=== PATIENT | male | born 1985 | race Caucasian/White ===

== ENCOUNTER 2017-11-30 20:11 | Emergency (ER) | payer OTHER, MEDICAID ==
[2017-11-30] MEDS: METHOCARBAMOL 750 MG TAB PO (22:09)
== END 2017-11-30 22:14 | disposition home or self-care (01) ==
LOC: M ED 20:11
DX: M54.42 Lumbago with sciatica, left side (principal); K21.9 Gastro-esophageal reflux disease without esophagitis; Z72.0 Tobacco use; Z88.0 Allergy status to penicillin; Z91.030 Bee allergy status
CPT/HCPCS: 99282

== ENCOUNTER 2020-01-15 16:04 | Emergency (ER) | payer OTHER ==
[~2020-01-15] VITALS: Ht 185.4 cm; Wt 74.1 kg
[2020-01-15 16:04] VITALS: BP 140/87
[~2020-01-15 16:04] MED LIST: FLEXERIL OR; NAPR-837 PO; ROBA750T4 PO; TRAM50TA2 OR
--- NOTE | 2020-01-15 17:49 | REPVR ---
PROCEDURE INFORMATION: Exam: US Scrotum Exam date and time: 01/15/2020 5:35 PM Age: 34 years old Clinical indication: Other: Left testicular mass TECHNIQUE: Imaging protocol: Real-time ultrasound of the scrotum and contents with color Doppler and image documentation. COMPARISON: No relevant prior studies available. FINDINGS: Right testicle: Right testis measures 5.5 x 2.8 x 2.9 cm. Normal echogenicity and flow. Left testicle: Left testis measures 4.7 x 2.8 x 3.2 cm. Normal echogenicity and flow. Epididymides: Cyst in the right epididymal head measures 8.5 x 6.7 x 11 mm. Left epididymal tail measures 9 mm demonstrating hyperemic flow on color flow Doppler consistent with epididymitis. Scrotum: Normal. IMPRESSION: 1. Cyst in the right epididymal head as described above. 2. Left epididymal tail measures 9 mm demonstrating hyperemic flow on color flow Doppler consistent with epididymitis. Electronically signed by: Vernon Donovan On 01/15/2020 17:49:25 PM
[2020-01-15] MEDS ORDERED: DOXY100C37 PO (18:10)
[2020-01-15] MEDS ORDERED: AZITHROMYCIN 250MG TABLET PO ONE (18:15)
== END 2020-01-15 18:37 | disposition home or self-care (01) ==
LOC: M ED 16:04
DX: N45.1 Epididymitis (principal); F17.200 Nicotine dependence, unspecified, uncomplicated; Z88.0 Allergy status to penicillin; Z91.030 Bee allergy status

== ENCOUNTER 2020-01-16 16:58 | Emergency (ER) | payer OTHER ==
[~2020-01-16] VITALS: Ht 185.4 cm; Wt 74.5 kg
[~2020-01-16 16:58] MED LIST changes: +DOXY100C37 PO
[2020-01-16 18:07] VITALS: BP 173/86
== END 2020-01-16 18:13 | disposition home or self-care (01) ==
LOC: M ED 16:58
DX: S01.01XA Laceration without foreign body of scalp, initial encounter (principal); W01.198A Fall on same level from slipping, tripping and stumbling with subsequent striking against other object, initial encounter; Y92.019 Unspecified place in single-family (private) house as the place of occurrence of the external cause; K21.9 Gastro-esophageal reflux disease without esophagitis; Z88.0 Allergy status to penicillin; Z91.030 Bee allergy status

== ENCOUNTER 2020-06-22 14:22 | Emergency (ER) | payer OTHER ==
[~2020-06-22] VITALS: Ht 185.4 cm; Wt 75.0 kg
--- OUTSIDE RECORDS SUMMARY | 2020-06-22 14:44 | CCD ---
Author Author [facility] Organization [facility] Address Unknown Phone Unavailable Care Team Providers Care Evaporator Name Role Phone Restrepo, Agustina Orlin PA Unavailable Unavailable Restrepo, R Orlin PA Unavailable Restrepo, R Orlin PA Unavailable Restrepo, R Orlin PA Unavailable Restrepo, R Orlin PA Unavailable Restrepo, R Orlin PA Unavailable Restrepo, R Orlin PA Unavailable Restrepo, R Orlin PA Unavailable Restrepo, R Orlin PA Unavailable TESS, Cristhian SEAMAN PA Unavailable Unavailable TESS, A JURGEN PA Unavailable Unavailable TESS, A JURGEN PA Unavailable Unavailable TESS, A JURGEN PA Unavailable Unavailable TESS, A JURGEN PA Unavailable Unavailable TESS, A JURGEN PA Unavailable Unavailable TESS, A JURGEN PA Unavailable Unavailable TESS, A JURGEN PA Unavailable Unavailable TESS, A JURGEN PA Unavailable Unavailable TESS, A JURGEN PA Unavailable Unavailable TESS, A JURGEN PA Unavailable Unavailable TESS, A JURGEN PA Unavailable Unavailable TESS, Cristhian MONAHAN Unavailable Unavailable Re-disclosure Warning The records that you are about to access may contain information from federally-assisted alcohol or drug abuse programs. If such information is present, then the following federally mandated warning applies: This information has been disclosed to you from records protected by federal confidentiality rules (42 CFR part 2). The federal rules prohibit you from making any further disclosure of this information unless further disclosure is expressly permitted by the written consent of the person to whom it pertains or as otherwise permitted by 42 CFR part 2. A general authorization for the release of medical or other information is NOT sufficient for this purpose. The Federal rules restrict any use of the information to criminally investigate or prosecute any alcohol or drug abuse patient.The records that you are about to access may contain highly sensitive health information, the redisclosure of which is protected by Article 27-F of the [facility] Public Health law. If you continue you may have access to information: Regarding HIV / AIDS; Provided by facilities licensed or operated by the [facility] Office of Mental Health; or Provided by the [facility] Office for People With Developmental Disabilities. If such information is present, then the following [facility] mandated warning applies: This information has been disclosed to you from confidential records which are protected by state law. State law prohibits you from making any further disclosure of this information without the specific written consent of the person to whom it pertains, or as otherwise permitted by law. Any unauthorized further disclosure in violation of state law may result in a fine or mcfp sentence or both. A general authorization for the release of medical or other information is NOT sufficient authorization for further disc losure. Allergies and Adverse Reactions Type Description Substance Reaction Status Data Source(s ) Drug allergy Drug allergy bee venom protein (honey bee) [facility] Drug allergy Drug allergy bee pollen [facility] Drug allergy Drug allergy Penicillins [facility] Drug allergy Drug allergy Environmental [facility] Family History Family Member Name Family Member Gender Family Member Status Date o f Status Description Data Source(s) Unknown Male Problem MEDENT ([facility]) Encounters Encounter Providers Location Date Indications Data Source(s ) Outpatient [facility]PS[facility]EJN 01/14/2020 08:08:00 PM EDT [facility] Emergency Attender: Orlin SAMUELSttender: Orlin MONAHAN ED-ED 01/14/2020 02:33:00 PM EDT - 01/14/2020 05:08:00 PM EDT ENLARGED MASS [facility] ENLARGED MASS Patient discharged. Emergency Attender: JURGEN MONAHAN ED-ED 09/19 06:56:00 PM EDT - 09/20/2019 07:27:00 PM EDT LACERATION R PINKY FINGER [facility] LACERATION R PINKY FINGER Patient discharged. Insurance Providers Payer name Policy type / Coverage type Policy ID Covered republican ID Covered republican's relationship to sánchez Policy Sánchez Plan Information [facility] O [id number] S [id number] O UNAVAILABLE UNAVAILA BLE [facility] [id number] SP [id number] [facility] COMM[facility] [id number] SP [id number] [facility] [id number] S [id number] [facility] Community Plan Commercial [id number] Self [id number] MEDICAID [id number] SP [id number] Results ID Date Data Source [id number] 05/03/2020 12:00:00 AM EST [facility] Aman Rodriguez MD Patient Name: NIA,SHARMILA [address] [facility] Date of : 1985[place] [address] Date of Exam: 05/03/2020#: Fax: [phone] EXAM: LUMBSACRAL SPINE (2 OR 3 VIEWS) XRAYCLINICAL INFORMATION: Disability determination.PRIORS: None.There is mild universal L5-1 disc space narrowing and mild posterior discspace narrowing at other levels. There is anterior lipping seen at everylevel. The pedicles are intact bilaterally.IMPRESSION:Chronic changes as described above.JOHN Rankin/Divine paredes for referring SHARMILA KRAMER to our office. Electronically Signed - ISABELA MCGINNIS DO 05/04/20 15:12 Name Value Range Interpretation Code Description Data Cece rce(s) Supporting Document(s) ID Date Data Source [id number] 01/15/2020 05:31:00 PM EDT [facility] Name Value Range Interpretation Code Description Data Cece rce(s) Supporting Document(s) Chlamydia,Urine result Negative Very abnormal (applies t o non-numeric units [facility] Tosha Gregory RN read back information 1457 LAB.JORASHAWN Test Performed By: [facility] [address] [place] [address] Director: Lisa Valdes MD . THIS IS A STATE REPORTABLE COMMUNICABLE DISEASE. Results called 01/15/201457, Radha Adair MT @ lab read back information to LAB.JANMI GC Urine result Negative Normal (applies to non-numeric results) [facility] Test Performed By: [facility] [address] [place] [address] Director: Lisa Valdes MD . Methodology: Second generation nucleic acid amplification. ID Date Data Source [id number] 01/15/2020 02:59:00 PM EDT [facility] Name Value Range Interpretation Code Description Data Cece rce(s) Supporting Document(s) Chlamydia,Urine Negative [facility] Test Performed By: [facility] [address] [place] [address] Director: Lisa Valdes MD . THIS IS A STATE REPORTABLE COMMUNICABLE DISEASE. Results called 01/15/201457, Radha Adair MT @ lab read back information to LAB.JANMI Test Performed By: [facility] [address] [place] [address] Director: Lisa Valdes MD . Methodology: Second generation nucleic acid amplification. ID Date Data Source [id number] 01/14/2020 04:11:00 PM [facility] Collected By: Nurse Initials: as Time Collected: 1541 Collected By: Nurse Initials: as Time Collected: 1541 Name Value Range Interpretation Code Description Data Cece rce(s) Supporting Document(s) Color,Urine Colorl-Dk Y Normal (applies to non-numeric res ults) [facility] Clarity,Urine Clear Normal (applies to non-numeric re sults) [facility] Specific [place],Urine 1.005-1.030 Normal (applies to non- numeric results) [facility] pH,Urine 5.0-8.0 Normal (applies to non-numeric resul ts) [facility] Protein,Urine Negative Normal (applies to non-numeric re sults) [facility] Glucose,Urine Negative Normal (applies to non-numeric re sults) [facility] Ketones,Urine Negative Normal (applies to non-numeric re sults) [facility] Blood,Urine Negative Normal (applies to non-numeric resu lts) [facility] Bilirubin,Urine Negative Normal (applies to non-numeric results) [facility] Urobilinogen,Urine 0.2-1.0 Normal (applies to non-numer ic results) [facility] Leukocyte Esterase,Urine Negative [facility] Nitrite,Urine Negative Normal (applies to non-numeric re sults) [facility] ID Date Data Source [id number] 01/14/2020 04:11:00 PM [facility] Collected By: Nurse Initials: as Time Collected: 1541 Collected By: Nurse Initials: as Time Collected: 1541 Name Value Range Interpretation Code Description Data Cece rce(s) Supporting Document(s) RBC,Urine None Seen Normal (applies to non-numeric resul ts) [facility] WBC,Urine None Seen [facility] Casts,Urine None Seen Normal (applies to non-numeric resu lts) [facility] Epithelial Cells,Urine None - Few Normal (applies to non-n umeric results) [facility] Bacteria,Urine None Seen Normal (applies to non-numeric r esults) [facility] Procedure Vital Signs ID Date Data Source [id number] 01/15/2020 05:31:[address] [facility] Name Value Range Interpretation Code Description Data Source(s) Weight Measurement Method 8 8 [facility] Weight [address] [facility] pital Temperature Source 1 1 [facility] Temperature 98.[address] [facility] Respiratory Effort 1 1 [facility] Respiratory Rate [address] [facility] Pulse Assessment Method 4 4 G [facility] Pulse Rate [address] [facility] pital Height [address] [facility] pital Blood Pressure 150/92 150/92 [facility] Weight Measurement Method 8 8 [facility] Weight [address] [facility] pital Temperature Source 1 1 [facility] Temperature [address] [facility] Respiratory Effort 1 1 [facility] Respiratory Rate [address] [facility] Pulse Assessment Method 4 4 G [facility] Pulse Rate [address] [facility] pital Height [address] [facility] pital Blood Pressure 150/92 150/92 [facility] ID Date Data Source [id number] 09/20/2019 07:27:[address] [facility] Name Value Range Interpretation Code Description Data Source(s) Weight Measurement Method 8 8 [facility] Weight [address] [facility] pital Temperature Source 7 7 [facility] Temperature 98.[address] [facility] Respiratory Rate [address] [facility] 91 [facility] 136/94 136/94 [facility] Weight Measurement Method 8 8 [facility] Weight [address] [facility] pital Temperature Source 7 7 [facility] Temperature [address] [facility] Respiratory Rate [address] [facility] Pulse Rate [address] [facility] pital Blood Pressure 136/94 136/94 [facility]
--- OUTSIDE RECORDS SUMMARY | 2020-06-22 17:04 | CCD ---
Author Author [facility] Organization [facility] Address Unknown Phone Unavailable Care Team Providers Care Pick Up Worker Name Role Phone Restrepo, R Orlin PA Unavailable Unavailable Restrepo, R Orlin PA Unavailable Restrepo, R Orlin PA Unavailable Restrepo, R Orlin PA Unavailable Restrepo, R Orlin PA Unavailable Restrepo, R Orlin PA Unavailable Restrepo, R Orlin PA Unavailable Restrepo, R Orlin PA Unavailable Restrepo, R Orlin PA Unavailable Restrepo, R Orlin PA Unavailable TESS, Cristhian MONAHAN Unavailable Unavailable TESS, Cristhian SEAMAN PA Unavailable Unavailable TESS, Cristhian SEAMAN PA Unavailable Unavailable TESS, Cristhian SEAMAN PA Unavailable Unavailable TESS, Cristhian SEAMAN PA Unavailable Unavailable TESS, Cristhian SEAMAN PA Unavailable Unavailable TESS, Cristhian SEAMAN PA Unavailable Unavailable TESS, Cristhian SEAMAN PA Unavailable Unavailable TESS, Cristhian SEAMAN PA Unavailable Unavailable TESS, A JURGEN PA Unavailable Unavailable TESS, A JURGEN PA Unavailable Unavailable TESS, A JURGEN PA Unavailable Unavailable TESS, A JURGEN PA Unavailable Unavailable Re-disclosure Warning The records that [...] is protected by Article 27-F of the [facility] Public Health law. If you continue you may have access to information: Regarding HIV / AIDS; Provided by facilities licensed or operated by the [facility] Office of Mental Health; or Provided by the [facility] Office for People With Developmental Disabilities. If such information is present, then the following [facility] mandated warning applies: This information has been [...] law may result in a fine or longterm sentence or both. A general authorization for the release of medical or other information is NOT sufficient authorization for further disc losure. Allergies and Adverse Reactions Type Description Substance Reaction Status Data Source(s ) Drug allergy Drug allergy bee venom protein (honey bee) [facility] Drug allergy Drug allergy bee pollen [facility] Drug allergy Drug allergy Penicillins [facility] Drug allergy Drug allergy Environmental [facility] Family History Family Member Name Family Member Gender Family Member Status Date o f Status Description Data Source(s) Unknown Male Problem [facility] ([facility]) Encounters Encounter Providers Location Date Indications Data Source(s ) Outpatient [facility]PS[facility]ORT-LABEJN 01/14/2020 08:08:[address] [facility] Emergency Attender: Orlin Restrepo PAAttender: Orlin MONAHAN ED-ED 01/14/2020 02:33:00 PM EDT - 01/14/2020 05:08:00 PM EDT ENLARGED MASS [facility] ENLARGED MASS Patient discharged. Emergency Attender: JURGEN MONAHAN ED-ED 09/19 06:56:00 PM EDT - 09/20/2019 07:27:00 PM EDT LACERATION R PINKY FINGER [facility] LACERATION R PINKY FINGER Patient discharged. Insurance Providers Payer name Policy type / Coverage type Policy ID Covered republican ID Covered republican's relationship to sánchez Policy Sánchez Plan Information [facility] COMMUNITY PLAN [facility] [id number] [facility] O [id number] S [id number] O UNAVAILABLE UNAVAILA BLE [facility] COMMUNITY PLAN [facility] [id number] [facility] [id number] S [id number] [facility] Community Plan Commercial [id number] Self [id number] MEDICAID [id number] SP [id number] Results ID Date Data Source [id number] 05/03/2020 12:00:00 AM EST [facility] Aman Rodriguez MD Patient Name: SHARMILA KRAMER [address] [facility] Date of : 1985[place] [id number] Date of Exam: [facility]#: Fax: [phone] EXAM: LUMBSACRAL SPINE (2 OR 3 VIEWS) XRAYCLINICAL INFORMATION: Disability determination.PRIORS: None.There is mild universal L5-1 disc space narrowing and mild posterior discspace narrowing at other levels. There is anterior lipping seen at everylevel. The pedicles are intact bilaterally.IMPRESSION:Chronic changes as described above.Isabela Mcginnis, JOHN/Divine you for referring SHARMILA KRAMER to our office. Electronically Signed - ISABELA MCGINNIS DO 05/04/20 15:12 Name Value Range Interpretation Code Description Data Cece rce(s) Supporting Document(s) ID Date Data Source [id number] 01/15/2020 05:31:00 PM EDT [facility] Name Value Range Interpretation Code Description Data Cece rce(s) Supporting Document(s) Chlamydia,Urine result Negative Very abnormal (applies t o non-numeric units [facility] Tosha Gregory RN read back information 1457 LAB.JAMES Test Performed By: [facility] [address] [place] [address] Director: Lisa Valdes MD . THIS IS A STATE REPORTABLE COMMUNICABLE DISEASE. Results called 01/15/201457, Radha Adair MT @ lab read back information to LAB.KANDIS GC Urine result Negative Normal (applies to non-numeric results) [facility] Test Performed By: [facility] [address] [place] [address] Director: Lisa Valdes MD . Methodology: Second generation nucleic acid amplification. ID Date Data Source [id number] 01/15/2020 02:59:00 PM EDT [facility] Name Value Range Interpretation Code Description Data Cece rce(s) Supporting Document(s) Chlamydia,Urine Negative [facility] Test Performed By: [facility] [address] [place] [address] Director: Lisa Valdes MD . THIS IS A STATE REPORTABLE COMMUNICABLE DISEASE. Results called 01/15/20 Nanette, Radha Adair MT @ lab read back information to LAB.JANMI Test Performed By: [facility] [address] [place] [address] Director: Lisa Valdes MD . Methodology: Second generation nucleic acid amplification. ID Date Data Source [id number] [facility]: Nurse Initials: as Time Collected: 1541 Collected By: Nurse Initials: as Time Collected: 1541 Name Value Range Interpretation Code Description Data Cece rce(s) Supporting Document(s) Color,Urine Colorl-Dk Y Normal (applies to non-numeric res ults) [facility] Clarity,Urine Clear Normal (applies to non-numeric re sults) [facility] Specific [place],Urine 1.005-1.030 Normal (applies to non- numeric results) [facility] pH,Urine 5.0-8.0 Normal (applies to non-numeric resul ts) [facility] Protein,Urine Negative Normal (applies to non-numeric re sults) [facility] Glucose,Urine Negative Normal (applies to non-numeric re sults) [facility] Ketones,Urine Negative Normal (applies to non-numeric re sults) [facility] Blood,Urine Negative Normal (applies to non-numeric resu lts) [facility] Bilirubin,Urine Negative Normal (applies to non-numeric results) [facility] Urobilinogen,Urine 0.2-1.0 Normal (applies to non-numer ic results) [facility] Leukocyte Esterase,Urine Negative [facility] Nitrite,Urine Negative Normal (applies to non-numeric re sults) [facility] ID Date Data Source [id number] [facility]/14[facility] By: Nurse Initials: as Time Collected: 1541 Collected By: Nurse Initials: as Time Collected: 1541 Name Value Range Interpretation Code Description Data Cece rce(s) Supporting Document(s) RBC,Urine None Seen Normal (applies to non-numeric resul ts) [facility] WBC,Urine None Seen [facility] Casts,Urine None Seen Normal (applies to non-numeric resu lts) [facility] Epithelial Cells,Urine None - Few Normal (applies to non-n umeric results) [facility] Bacteria,Urine None Seen Normal (applies to non-numeric r esults) [facility] Procedure Vital Signs ID Date Data Source [id number] 01/15/2020 05:31:00 PM EDT [facility] Name Value Range Interpretation Code Description Data Source(s) Weight Measurement Method 8 8 [facility] Weight 2400 2400 [facility] pital Temperature Source 1 1 [facility] Temperature 98.2 98.2 [facility] spital Respiratory Effort 1 1 [facility] Respiratory Rate 16 16 [facility] Pulse Assessment Method 4 4 G [facility] Pulse Rate 96 96 [facility] pital Height 73 73 [facility] pital Blood Pressure 150/92 150/92 [facility] Weight Measurement Method 8 8 [facility] Weight 2400 2400 [facility] pital Temperature Source 1 1 [facility] Temperature 98.2 98.2 [facility] spital Respiratory Effort 1 1 [facility] Respiratory Rate 16 16 [facility] Pulse Assessment Method 4 4 G [facility] Pulse Rate 96 96 [facility] pital Height 73 73 [facility] pital Blood Pressure 150/92 150/92 [facility] ID Date Data Source [id number] 09/20/2019 07:27:00 PM EDT [facility] Name Value Range Interpretation Code Description Data Source(s) Weight Measurement Method 8 8 [facility] Weight 2560 2560 [facility] pital Temperature Source 7 7 [facility] Temperature 98.6 98.6 [facility] spital Respiratory Rate 18 18 [facility] 91 91 [facility] Pressure 136/94 136/94 [facility] Weight Measurement Method 8 8 [facility] Weight 2560 2560 [facility] pital Temperature Source 7 7 [facility] Temperature 98.6 98.6 [facility] spital Respiratory Rate 18 18 [facility] Pulse Rate 91 91 [facility] Blood Pressure 136/94 136/94 [facility]
--- NOTE | 2020-06-22 17:23 | REP ---
INDICATION: left sided rib pain following shoveling near 9-11th rib. COMPARISON: None. TECHNIQUE: A PA chest with 4 dedicated left rib images. FINDINGS: PA chest: Of the lung claudio are well inflated there is no effusion, infiltrate, pleural thickening, apical scarring or pneumothorax the heart, mediastinal hilar contours are normal. Some calcified right paratracheal nodes are noted from the T3-4 through upper aspect of T5 vertebral bodies. There is no infiltrate or other parenchymal lung findings. The aorta is intact in the airway normal. The bony thorax and PA chest shows no visible or acute finding. Left ribs: Four view show posterior rib articulations grossly intact visualized thoracic vertebral bodies are grossly unremarkable. Paraspinal nodes with calcification in the right upper chest as on chest x-ray no effusion pleural thickening or pneumothorax on the left side no visible displaced rib fracture or focal lesion IMPRESSION: 1. Negative PA chest for acute finding. There are some calcified right paratracheal lymph nodes evident from the mid aspect the T3 through upper T5 is evidence for old granulomatous disease. 2. No left-sided rib fracture, focal rib lesion, pleural effusion or other acute finding. <Electronically signed by Ehsan Archibald > 06/22/20 [id number]
--- NOTE | 2020-06-22 18:39 | REPVR ---
PROCEDURE INFORMATION: Exam: CT Chest Without Contrast; Diagnostic Exam date and time: 06/22/2020 6:00 PM Age: 34 years old Clinical indication: Chest pain; Additional info: Left chest pain after shoveling TECHNIQUE: Imaging protocol: Diagnostic computed tomography of the chest without contrast. 3D rendering (Not supervised by radiologist): MIP and/or 3D reconstructed images were created by the technologist. Radiation optimization: All CT scans at this facility use at least one of these dose optimization techniques: automated exposure control; mA and/or kV adjustment per patient size (includes targeted exams where dose is matched to clinical indication); or iterative reconstruction. COMPARISON: CR Ribs uni W-PA CHEST ONLY 06/22/2020 5:06 PM FINDINGS: Lungs: Paraseptal emphysematous change is seen in the upper lobes of both lungs. Both lungs are well-aerated. Pleural spaces: Unremarkable. No pneumothorax. No pleural effusion. Heart: The heart size is normal. Normal pulmonary vasculature. No coronary artery calcification is present. Aorta: No CT evidence of thoracic aortic aneurysm or acute intramural thoracic aortic hematoma. Lymph nodes: Multiple calcified lymph nodes are seen in the right paratracheal mediastinum and infracarinal mediastinum. Bones/joints: No CT evidence of acute vascular, visceral or bony injury evident in the chest or upper abdomen. No obvious soft tissue muscular tears or high-grade strains identified within the chest or in the chest wall. The bony structures of the chest are normal. Soft tissues: Unremarkable. IMPRESSION: 1. No CT evidence of acute vascular, visceral or bony injury evident in the chest or upper abdomen. No obvious soft tissue muscular tears or high-grade strains identified within the chest or in the chest wall. 2. Multiple calcified lymph nodes are seen in the right paratracheal mediastinum and infracarinal mediastinum. 3. Paraseptal emphysematous change is seen in the upper lobes of both lungs. Both lungs are well-aerated. 4. No CT evidence of thoracic aortic aneurysm or acute intramural thoracic aortic hematoma. 5. The heart size is normal. Normal pulmonary vasculature. No coronary artery calcification is present. 6. The bony structures of the chest are normal. Electronically signed by: Luis Ramos On 06/22/2020 18:39:43 PM
[2020-06-22 19:09] VITALS: BP 148/80
--- NOTE | 2020-06-23 09:35 | ECGEPIP ---
[facility] [place] - ED Test Date: 2020-06-22 Pat Name: SHARMILA KRAMER Department: Room: - Gender: Male Surgical Services Asst: MALIK : 1985 Requested By: ALEKSANDAR VALLE PA-C Order Number: [id number] Reading MD: Gwendolyn Berg Measurements Intervals [place] Rate: 90 P: 74 MD: 140 QRS: 56 QRSD: 88 T: 37 QT: 340 QTc: 415 Interpretive Statements Normal sinus rhythm Minimal voltage criteria for LVH, may be normal variant ( Sokolow-Ivy ) NSTTW abnormalities No prior Electronically Signed on 06-23-2020 9:35:12 EST by Gwendolyn Berg
== END 2020-06-22 19:19 | disposition home or self-care (01) ==
LOC: M ED 14:22
DX: S23.41XA Sprain of ribs, initial encounter (principal); X50.0XXA Overexertion from strenuous movement or load, initial encounter; Y92.9 Unspecified place or not applicable; Y93.H1 Activity, digging, shoveling and raking; Y99.9 Unspecified external cause status; M54.9 Dorsalgia, unspecified; K21.9 Gastro-esophageal reflux disease without esophagitis; F17.200 Nicotine dependence, unspecified, uncomplicated; Z88.0 Allergy status to penicillin; Z91.030 Bee allergy status

== ENCOUNTER 2021-12-02 02:34 | Emergency (ER) | payer OTHER ==
[~2021-12-02] VITALS: Ht 188 cm; Wt 76.6 kg
[~2021-12-02 02:34] MED LIST changes: +DOXY-443 PO; -DOXY100C37 PO
[2021-12-02] MEDS ORDERED: BOOSTRIX/ADACEL VACCINE (DIPHTH/PERTUSS/ACELL/TETANUS) 0.5ML SYR IM.IMMUN ONE (03:10)
[2021-12-02] MEDS ORDERED: ISOVUE-370 76% 100ML VIAL As Ordered ONE (04:33)
[2021-12-02] MEDS ORDERED: VANCOMYCIN HCL 1,000 MG, VIAL MATE ADAPTER 1 EACH in NS 250 ML IV ONE (04:40)
[2021-12-02 05:01] LABS: BASO % 0.3 % (0.0-1.0); EOS % 0.1 % (0.0-3.0); HEMATOCRIT 41.5 % (42.0-52.0); HEMOGLOBIN 14.4 g/dl (13.5-17.5); LYMPH # 2.2 10^3/uL (1.5-5.0); LYMPH % 14.8 % (24.0-44.0); MEAN CORPUSCULAR HEMOGLOBIN 32.7 pg (27.0-33.0); MEAN CORPUSCULAR HGB CONC 34.7 g/dl (32.0-36.5); MEAN CORPUSCULAR VOLUME 94.3 fl (80.0-96.0); MONO # 0.8 10^3/uL (0.0-0.8); MONO % 5.2 % (2.0-8.0); NEUTROPHILS # 11.5 10^3/uL (1.5-8.5); NEUTROPHILS % 79.2 % (36.0-66.0); PLATELET COUNT, AUTOMATED 254 10^3/uL (150-450); WHITE BLOOD COUNT 14.5 10^3/uL (4.0-10.0)
[2021-12-02 05:34] LABS: RSV AMPLIFICATION NEGATIVE (NEGATIVE)
[2021-12-02] MEDS ORDERED: KETOROLAC 30 MG/ML 1ML VIAL IV ONE (05:35)
[2021-12-02] MEDS ORDERED: NICOTINE 21MG/24HR 1 EA TRANSDERMAL TD ONE (06:25)
[2021-12-02] MEDS ORDERED: NS 1,000 ML IV SCH (06:45)
[2021-12-02 08:30] VITALS: BP 127/81
== END 2021-12-02 09:03 | disposition short-term general hospital (02) ==
LOC: EDBD 02:34 → M ED 02:34
DX: S01.419A Laceration without foreign body of unspecified cheek and temporomandibular area, initial encounter (principal); S21.319A Laceration without foreign body of unspecified front wall of thorax with penetration into thoracic cavity, initial encounter; S25.1 Injury of innominate or subclavian artery; S02.2XXB Fracture of nasal bones, initial encounter for open fracture; V00.841A Fall from standing electric scooter, initial encounter; K21.9 Gastro-esophageal reflux disease without esophagitis; Y92.410 Unspecified street and highway as the place of occurrence of the external cause; Y93.I9 Activity, other involving external motion; Y99.9 Unspecified external cause status; Z88.0 Allergy status to penicillin; Z91.030 Bee allergy status
CPT/HCPCS: 12002; 12014; 70450; 70486; 71046; 71260; 72125; 72128; 72131; 73030; 74177; 80047; 85025; 87631; 90715; 93041; 94760; 96361; 96365; 96366; 96375; 99285; J1885; J3370; Q9967